=== PATIENT | female | born 1990 | race Caucasian/White ===

== ENCOUNTER 2019-02-05 16:39 | Emergency (ER) | payer OTHER ==
[~2019-02-05] VITALS: Ht 166.4 cm; Wt 97.4 kg
[~2019-02-05 16:39] MED LIST: FERR240T9 PO; PREN1TAB49
[2019-02-05 16:45] VITALS: Ht 166.4 cm; Wt 97.4 kg
[2019-02-05] MEDS ORDERED: ONDANSETRON (ODT) 4 MG TAB ODT STA (17:05)
--- NOTE | 2019-02-05 17:13 | ERD ---
ER Documentation Chief Complaint Chief Complaint feels dizzy; headache since this morning HPI Patient is a 28-year-old female, no past medical history, presents the ER for concerns of dizziness which started this morning. Patient describes a room spinning sensation. Dizziness is worse with positional changes. Patient states she also has muffled hearing out of her right ear pain. Patient denies any chest pain, shortness of breath or loss of consciousness.. Patient does report nausea however she denies any vomiting. Patient states she had a similar episode 1 month ago. Patient states she does have an IUD does not recall her last menstrual. Patient denies any abdominal pain, neck pain, back pain, dysuria, frequency, urgency or hematuria.. Patient is able to ambulate without any difficulty. Patient denies any unilateral weakness, slurred speech, facial asymmetry. ROS All systems reviewed and are negative except as per history of present illness. Medications Home Meds Active Scripts Ondansetron (Ondansetron Odt) 4 Mg Tab.rapdis, 4 MG PO Q6H PRN for NAUSEA AND/OR VOMITING, #10 TAB Prov:KATALINA MILES PA-C 02/05/19 Meclizine Hcl* (Antivert*) 12.5 Mg Tab, 12.5 MG PO Q6H PRN for DIZZINESS, #20 TAB Prov:KATALINA MILES PA-C 02/05/19 Reported Medications Ferrous Gluconate (Iron) 1 Tab Tablet, 1 TAB PO DAILY 09/10/14 Vits W-Ca,Fe,Fa(<1MG) () 1 Tab Tablet 01/30/12 Allergies Allergies: Coded Allergies: No Known Allergy (Verified , 02/05/19) PMhx/Soc History of Surgery: No Anesthesia Reaction: No Hx Neurological Disorder: No Hx Respiratory Disorders: No Hx Cardiac Disorders: No Hx Psychiatric Problems: No Hx Miscellaneous Medical Probl: No Hx Alcohol Use: No Hx Substance Use: No Hx Tobacco Use: No Smoking Status: Never smoker FmHx Family History: No diabetes Physical Exam Vitals Vital Signs Date Temp Pulse Resp B/P (MAP) Pulse Ox O2 O2 Flow FiO2 Time Delivery Rate 02/05/19 98.2 59 20 109/78 98 Room Air 17:59 (88) 02/05/19 98.3 65 20 115/71 98 16:45 (86) Physical Exam GENERAL: Well-developed, well-nourished female. Appears in no acute distress. Speaking full sentences. HEAD: Normocephalic, atraumatic. No deformities or ecchymosis. EYE: Pupils equal, round, and reactive to light. EOMs intact. No conjunctival erythema. No eye discharge. Left-sided horizontal nystagmus noted with EOMs. ENT: External ear without any masses or tenderness. Left-sided cerumen impaction noted. Right auditory canal without any cerumen. Right TM visualized and within normal limits. Nasal mucosa pink with no discharge. Oropharynx is pink without any tonsillar erythema or exudates. No uvula deviation. No kissing tonsils. NECK: Supple. No meningismus. Normal ROM of the neck. LUNG: Clear to auscultation bilaterally. No rhonchi, wheezing, rales or coarse breath sounds. HEART: Regular rate and rhythm. No murmurs, rubs or gallops. EXTREMITES: Equal pulses bilaterally. No peripheral clubbing, cyanosis or edema. No unilateral leg swelling. NEUROLOGIC: Alert and oriented to person, place and time. Cranial nerves II through XII intact. No facial asymmetry. Moving all four extremities. 5/5 strength in all extremities. Normal speech. Steady gait. Equal metropolitan editor strength bilaterally. SKIN: Normal color. Warm and dry. No rashes or lesions. Results 24 hrs Laboratory Tests Test 02/05/19 17:20 02/05/19 17:28 Bedside Urine pH (LAB) 5.5 Bedside Urine Protein (LAB) Negative Bedside Urine Glucose (UA) Negative Bedside Urine Ketones (LAB) Negative Bedside Urine Blood 2+ Bedside Urine Nitrite (LAB) Negative Bedside Urine Leukocyte Esterase (L 1+ POC Beta HCG, Qualitative NEGATIVE Bedside Glucose 79 mg/dL Current Medications Medications Dose Sig/Lili Start Time Status Last (Trade) Ordered Route PRN Stop Time Admin Dose Reason Admin Ondansetron 4 mg ONCE STAT 02/05/19 DC 02/05/19 HCl (Zofran ODT 17:05 17:15 Odt) 02/05/19 17:07 Meclizine 12.5 mg ONCE ONCE 02/05/19 DC 02/05/19 HCl PO 17:30 17:15 (Antivert) 02/05/19 17:31 Procedures/MDM MEDICAL DECISION MAKING: This is a 28-year-old male, no past medical history, presents the ER for concerns of dizziness and left ear fullness x1 day vital signs were reviewed. Patient was afebrile. Patient was not hypoxic. Left ear exam was concerning for cerumen impaction. Ear lavage was performed using H20/ hydrogen peroxide mix by nursing staff. No trauma or complications were noted. Post irrigation, TM was visualized. Mild amount of bleeding was noted within the ear canal. No evidence of TM perforation.. Patient reported hearing restored. Neuro exam was normal except for horizontal nystagmus which is noted in the patient's left eye. At this time the patient presentation is most consistent with vertigo and cerumen impaction. Low suspicion for ACS, intracranial hemorrhage, CVA, TIA, DKA, otitis media, TM perforation, ectopic , . Patient was nontoxic, [id number] prior to discharge. PRESCRIPTIONS: Meclizine, Zofran DISCHARGE: At this time, patient is stable for discharge and outpatient management. I have instructed the patient to follow-up with his/her primary care physician in 1-2 days. I have discussed with the patient the possibility of needing to see a specialist for further workup and diagnostic studies if the pain persists. I have instructed the patient to promptly return to the ER at any time for any new or worsening symptoms including increased pain, fever, swelling, discharge or hearing loss. The patient and/or family expressed understanding of and agreement with this plan. All questions were answered. Home care instructions were provided. Disclaimer: Inadvertent spelling and grammatical errors are likely due to EHR/dictation software use and do not reflect on the overall quality of patient care. Also, please note that the electronic time recorded on this note does not necessarily reflect the actual time of the patient encounter. Departure Diagnosis: Primary Impression: Impacted cerumen of left ear Additional Impression: Vertigo Patient Instructions: Benign Positional Vertigo, Cerumen Impaction, Home Care Additional Instructions: Call your primary care doctor TOMORROW for an appointment during the next 1-2 days.See the doctor sooner or return here if your condition worsens before your appointment time. KATALINA MILES PA-C Feb 05, 2019 17:12
[2019-02-05] MEDS ORDERED: MECLIZINE 12.5 MG TAB PO ONE (17:30)
[2019-02-05] MEDS ORDERED: MECL12.574 PO (17:52)
[2019-02-05] MEDS ORDERED: ONDA4TAB14 PO (17:52)
[2019-02-05 17:59] VITALS: BP 109/78; PULSE 59; RESP 20
== END 2019-02-05 18:01 | disposition home or self-care (01) ==
LOC: FTE 16:39
DX: H61.22 Impacted cerumen, left ear (principal)
CPT/HCPCS: 69209; 81003; 81025; 82962; Z7502; Z7610